=== PATIENT | female | born 1980 | race African-American/Black ===

== ENCOUNTER 2017-08-31 10:15 | Emergency (ER) | payer OTHER, SELFPAY ==
--- NOTE | 2017-08-31 11:43 | RAD ---
LEFT FOOT THREE VIEWS: History: Left foot injury. FINDINGS: Lisfranc joint alignment is anatomic. Plantar arch is maintained. There is minimal osteophytosis. Sof t tissue swelling is apparent about the forefoot. No acute fracture or dislocation are visible. IMPRESSION: Soft tissue swelling. No acute osseous abnormalities are demonstrated. POS: SERGEY
[2017-08-31] MEDS ORDERED: Ketorolac Tromethamine 30 MG/ML VIAL ONE (11:47)
== END 2017-08-31 12:10 | disposition home or self-care (01) ==
LOC: ERS 10:15
DX: S90.32XA Contusion of left foot, initial encounter (principal); F32.9 Major depressive disorder, single episode, unspecified; F17.210 Nicotine dependence, cigarettes, uncomplicated; X50.1XXA Overexertion from prolonged static or awkward postures, initial encounter
CPT/HCPCS: 96372; J1885

== ENCOUNTER 2019-01-14 15:26 | Outpatient (CLI) | payer MEDICAID ==
--- NOTE | 2019-01-15 09:09 | MMO ---
Bilateral MAMMO Bilat Screen [facility]. CLINICAL HISTORY: Patient is 38 years old and is seen for screening. The patient has no family history of breast cancer. The patient has no personal history of cancer. VIEWS: The views performed were: bilateral craniocaudal and bilateral mediolateral oblique. This study has been interpreted with the assistance of computer-aided detection. MAMMOGRAM FINDINGS: There are scattered fibroglandular densities. There are no suspicious masses, suspicious calcifications, or new areas of architectural distortion. IMPRESSION: THERE IS NO MAMMOGRAPHIC EVIDENCE OF MALIGNANCY. A ROUTINE FOLLOW-UP MAMMOGRAM IN 1 YEAR IS RECOMMENDED. ACR BI-RADS Category 1 - Negative MAMMOGRAPHY NOTE: 1. A negative mammogram report should not delay a biopsy if a dominant of clinically suspicious mass is present. 2. Approximately 10% to 15% of breast cancers are not detected by mammography. 3. Adenosis and dense breasts may obscure an underlying neoplasm.
== END 2019-01-14 15:27 | disposition home or self-care (01) ==
LOC: SCSMAMMO 15:26
PROVIDERS: ATTEND Advanced Practice Midwife
DX: Z12.31 Encounter for screening mammogram for malignant neoplasm of breast (principal)
CPT/HCPCS: 77067

== ENCOUNTER 2021-05-26 09:21 | Outpatient (CLI) | payer MEDICAID | END 2021-05-26 09:22 | disposition home or self-care (01) | LOC: BICMAMMO 09:21 | PROVIDERS: ATTEND Nurse Practitioner Women's Health | DX: Z12.31 Encounter for screening mammogram for malignant neoplasm of breast (principal); R19.8 Other specified symptoms and signs involving the digestive system and abdomen; D25.9 Leiomyoma of uterus, unspecified | CPT/HCPCS: 76856; 77067 ==

== ENCOUNTER 2022-06-15 08:54 | Outpatient (CLI) | payer MEDICAID | END 2022-06-15 08:55 | disposition home or self-care (01) | LOC: BICMAMMO 08:54 | PROVIDERS: ATTEND Nurse Practitioner Women's Health | DX: Z12.31 Encounter for screening mammogram for malignant neoplasm of breast (principal); N64.89 Other specified disorders of breast | CPT/HCPCS: 77067 ==

== ENCOUNTER 2022-07-07 08:59 | Outpatient (CLI) | payer MEDICAID, OTHER | END 2022-07-07 09:00 | disposition home or self-care (01) | LOC: BICULT 08:59 | PROVIDERS: ATTEND Nurse Practitioner Women's Health | DX: R19.00 Intra-abdominal and pelvic swelling, mass and lump, unspecified site (principal); D25.9 Leiomyoma of uterus, unspecified | CPT/HCPCS: 76856; 93976 ==